=== PATIENT | female | born 1995 | race Hispanic/Latino ===

== ENCOUNTER 2019-04-12 16:29 | Emergency (ER) | payer SELFPAY ==
--- NOTE | 2019-04-12 18:19 | Event Note ---
ED Screening Note ED Screening Note: generalized body aches +cough +fever that began last night couple episodes of vomiting no diarrhea no known sick contacts PMHx kidney stones no allergies to meds [facility] last week non smoker
--- NOTE | 2019-04-12 18:28 | Emergency Department Report ---
Chief Complaint: Upper Respiratory Infection Stated Complaint: FLU SX Time Seen by Provider: 04/12/19 18:18 - HPI History of Present Illness: generalized body aches +cough +fever that began last night couple episodes of vomiting no diarrhea no SOB no CP no known sick contacts PMHx kidney stones no allergies to meds [facility] last week non smoker initial vitals with mild tachycardia which improved upon repeat on exam: non toxic appearing, no acute distress normal oropharynx normal TMs and canals bilaterally no sinus TTP bilaterally breath sounds are normal bilaterally without w/r/r normal rhythm and heart rate, no murmurs, gallops, rubs no clinical s/sx of PNA could be related to influenza virus, pt is afebrile here, she is within the 48 hour range for tamiflu, advised pt that it would approximately shorten symptoms by one day and she declined tamiflu treatment discussed the importance of oral rehydration and supportive care with pt will refer pt to a PCP - Exam Vital Signs: Vital Signs 04/12/19 04/12/19 16:38 18:24 Temperature 98.7 F Pulse Rate 110 H 92 H Respiratory 19 Rate Blood Pressure 122/76 O2 Sat by Pulse 98 98 Oximetry MSE screening note: Focused history and physical exam performed. ED Disposition for MSE Clinical Impression: Viral illness Disposition: Z-07 MED SCREENING EXAM-LEFT Is pt being admited?: No Does the pt Need Aspirin: No Condition: Stable Instructions: Viral Syndrome (ED) Additional Instructions: please increase your fluid intake over the next several days. may alternate tylenol or ibuprofen every 4 hours as needed for a fever. may use over the counter cough/cold medications. follow up with a primary care doctor in the next 2-3 days for reexamination. return to the emergency room for any new or worsening symptoms. Referrals: ALIREZA JOE MD [Staff Physician] - 2-3 Days [facility] [Outside] - 2-3 Days [facility] [Outside] - 2-3 Days Forms: Work/School Release Form(ED) Time of Disposition: 19:42 Print Language: MEXICAN
[2019-04-12 20:54] VITALS: BP 122/79
== END 2019-04-12 20:53 | disposition left against medical advice (07) ==
LOC: ED 16:29
DX: B34.9 Viral infection, unspecified (principal)

== ENCOUNTER 2021-09-02 22:40 | Emergency (ER) | payer SELFPAY ==
[2021-09-02 23:43] VITALS: BP 134/80
== END 2021-09-03 01:00 | disposition left against medical advice (07) ==
LOC: ED 22:40
DX: R52 Pain, unspecified (principal); Z53.21 Procedure and treatment not carried out due to patient leaving prior to being seen by health care provider